=== PATIENT | female | born 1985 | race Caucasian/White ===

== ENCOUNTER → 2022-05-27 11:32 | Outpatient (BNVA) | payer OTHER, SELFPAY | PROVIDERS: PCP Internal Medicine Hematology; Visit Provider Surgery Vascular Surgery | DX: T82.848A Pain due to vascular prosthetic devices, implants and grafts, initial encounter (principal) | CPT/HCPCS: 99212 ==

== ENCOUNTER → 2022-07-17 11:08 | Outpatient (BNVA) | payer OTHER, SELFPAY | PROVIDERS: PCP Internal Medicine Hematology; Visit Provider Surgery Vascular Surgery | DX: Z78.9 Other specified health status (principal) | CPT/HCPCS: 99212 ==

== ENCOUNTER 2024-05-14 14:38 | Emergency (ER) | payer MEDICAID, SELFPAY ==
--- NOTE | 2024-05-14 14:47 | ED.ALLEREA ---
HPI - Allergic Reaction General Chief complaint: Allergic Reaction Stated complaint: BEE STING W/ALLERGY,BENEDRYL GIVEN PER EMS Time Seen by Provider: 05/14/24 14:46 Source: patient and EMS Mode of arrival: EMS Limitations: no limitations History of Present Illness ED Provider: Brandy Turner PA-C HPI narrative: 38 yo female with history of severe persistent asthma, history of stage III colon cancer status post chemotherapy, who presents to the ER via EMS for evaluation of a bee sting with allergic reaction. She has a history of an allergic reaction in the past that resulted in sensation of throat closing. Patient reports this happened 2 months ago and she took Benadryl with resolution of her symptoms. She does not have an EpiPen. Patient was stung by bees the back of the left leg while she was at 1st stool today. She reported feeling swelling in the back of her throat on the right side, cough, and swelling of her eyes. EMS was called and she was given 12.5 mg of liquid Benadryl. Patient denies any swelling of her tongue or lips. She has history of severe asthma and was just hospitalized at [facility]. She reports history of vocal cord dysfunction and changes in her voice frequently. MD complaint: allergic reaction and facial swelling Onset (ago): minute(s) Exposure: insect bite Symptoms: hoarseness Severity: moderate Treatment prior to arrival: benadryl Previous Allergic Reaction History: prior ED visit(s) Related Data Home Medications ?Medication ?Instructions ?Recorded ?Confirmed docusate sodium 100 mg capsule 100 mg PO BID 05/27/22 duloxetine 30 mg capsule,delayed 60 mg PO DAILY 05/27/22 release epinephrine 0.3 mg/0.3 mL 0.3 ml IM anaphylaxis 05/27/22 injection, auto-injector famotidine 20 mg tablet 20 mg PO BEDTIME 05/27/22 fluticasone furoate 200 1 ea inhalation DAILY 05/27/22 mcg-vilanterol 25 mcg/dose inhalation powder (Breo Ellipta) medroxyprogesterone 5 mg tablet 10 mg PO DAILY 05/27/22 methocarbamol 750 mg tablet 750 mg PO Q6H PRN muscle spasm 05/27/22 montelukast 10 mg tablet 10 mg PO BEDTIME 05/27/22 omeprazole 20 mg capsule,delayed 0 mg PO 05/27/22 release vits no.130-ferrous fum 1 tab PO DAILY 05/27/22 27 mg iron-folic acid 800 mcg tablet ( Vitamin) sennosides 8.6 mg tablet (senna) 17.2 mg PO BEDTIME 05/27/22 sucralfate 100 mg/mL oral 10 ml PO QID 05/27/22 suspension sumatriptan succinate 25 mg tablet 25 mg PO DAILY PRN migraine 05/27/22 topiramate 50 mg tablet 50 mg PO BEDTIME migraine 05/27/22 Allergies Allergy/AdvReac Type Severity Reaction Status Date / Time bee pollen [BEE STINGS] Allergy Unknown ANAPHYLAXIS Verified 05/14/24 15:08 naproxen Allergy Unknown vomiting Verified 05/14/24 15:08 penicillin G Allergy Unknown Unknown Verified 05/14/24 15:08 tramadol [From ULTRAM] Allergy Unknown VOMITING Verified 05/14/24 15:08 hydromorphone [From DILAUDID] AdvReac Unknown VOMITING Verified 05/14/24 15:08 ibuprofen AdvReac Unknown Vomiting Verified 05/14/24 15:08 lactose [LACTOSE] AdvReac Unknown IRRITATES Verified 05/14/24 15:08 THE STOMACH meperidine [From DEMEROL] AdvReac Unknown NAUSEA Verified 05/14/24 15:08 VOMITING Penicillins [PENICILLINS] AdvReac Unknown VOMITING Verified 05/14/24 15:08 Review of Systems Review of Systems: Yes all other systems are reviewed and are negative FOR[facility]LY [facility] Past Medical History Medical History Asthma Colon cancer Social History Social History Advance Directives: No Advance Directives Information Provided: No Do you have a plan to hurt others: No Plan Physical Exam ED Vital Signs: Vital Signs - 24 hr 05/14/24 15:07 05/14/24 16:52 05/14/24 16:53 Temperature Pulse Rate 96 92 Respiratory Rate 20 16 16 Blood Pressure 111/73 117/67 117/73 Pulse Oximetry 100 97 98 Oxygen Delivery Method Room Air Room Air Room Air 05/14/24 17:09 Temperature 98.4 F Pulse Rate 84 Respiratory Rate 16 Blood Pressure 117/73 Pulse Oximetry 98 Oxygen Delivery Method Room Air BMI result Body Mass Index 24.9 Appearance: Alert. Oriented X3. No acute distress. Head: normocephalic, atraumatic. Eyes: very mild swelling of the bilateral periorbital area without any associated hives or erythema. Pupils equal, round and reactive to light. ENT: Pharynx normal. No tonsillar swelling or exudate. lips are normal to inspection, tongue is normal to inspection. Voice is slightly hoarse Neck: Normal inspection. Neck supple. CVS: Normal heart rate and rhythm. Pulses normal. Port and left chest wall Respiratory: No respiratory distress. Breath sounds normal. barking cough. Abdomen: Soft and nontender. +BS x4 Skin: Skin warm and dry. Normal skin color. Normal skin turgor. No rashes. urticaria Extremities: No lower extremity edema. No joint swelling. there is some mild erythema in the posterior left calf where she got stung by the bee Neuro/psych: Oriented X 3. No motor deficit. No sensory deficit. CN II-XII intact. Course Reevaluation(s) Reevaluation #1: Patient re-evaluated after intravenous medications were administered she is feeling slightly better. Voice sounds improved. Will continue to monitor. Reevaluation #2: Patient re-evaluated and she is feeling much better. No longer having any sensation of throat swelling. Tolerating p.o.. Comfortable discharge home. Medications Administered Discontinued Medications Generic Name Dose Route Start Last Admin Trade Name Freq PRN Reason Stop Dose Admin Diphenhydramine HCl 25 mg 05/14/24 14:46 05/14/24 15:11 Diphenhydramine Hcl 50 Mg/Ml Vial IVPUSH 05/14/24 14:47 25 mg ONCE ONE Administration Famotidine 20 mg 05/14/24 14:46 05/14/24 15:11 Famotidine/Pf 20 Mg/2 Ml Vial IVPUSH 05/14/24 14:47 20 mg ONCE ONE Administration Methylprednisolone Sodium Succinate 125 mg 05/14/24 14:46 05/14/24 15:11 Methylprednisolone Sod Succ 125 Mg/2 Ml Vial IVPUSH 05/14/24 14:47 125 mg ONCE ONE Administration Medical Decision Making Medical Decision Making MDM Narrative: 38 yo female with hx asthma, VCD, history of allergic reaction to bees in the past who presents to the ER for evaluation of allergic reaction. Given 12 mg of oral Benadryl in route. On arrival to the ER patient's port was accessed and she was given intravenous Solu-Medrol, Pepcid, Benadryl. She was monitored closely for evolution of her symptoms. She remained on telemetry. Patient's symptoms were re-evaluated multiple times throughout her stay. She continued to improve. After hours of observation patient was able to be discharged home. Differential Diagnosis Differential Diagnoses: The differential diagnosis associated with the presentation includes Anaphylaxis, allergic reaction, angioedema, urticaria, Admission/Observation Consideration of admission/observation: Escalation of care including admission/observation considered Independent Historian Clinical information obtained from an independent historian. History obtained from or confirmed by: EMS External Record Review External record reviewed: Outpatient record Prescription Management I considered prescription management with: Other (Epinephrine) Chronic Conditions Patient?s care impacted by: Other (Asthma, VCD) Critical Care Time Critical Care Time Critical Care Time: Yes Total Critical Care Time: 33 Attestation: I have personally provided critical care time exclusive of time spent on separately billable procedures. Time includes review of chart, multiple bedside reassessments of cardiopulmonary status and for possible evolution of anaphylaxis and monitoring for potential decompensation. Intervention performed as documented. Discharge Plan Discharge Clinical Impression: Allergic reaction Patient Disposition: Home, Self-Care Instructions: General Allergic Reaction (ED) Additional Instructions: Recommend keeping Benadryl on her person in the event that you get stung by a bee again, recommend taking 50 mg of Benadryl. Follow-up with your doctor. If you develop new or worsening symptoms call 911 or come back to the ER for further evaluation. Prescriptions: No Action sucralfate 100 mg/mL suspension 10 ml PO QID medroxyprogesterone 5 mg tablet 10 mg PO DAILY methocarbamol 750 mg tablet 750 mg PO Q6H PRN (Reason: muscle spasm) Vitamin 27 mg iron- 800 mcg tablet 1 tab PO DAILY topiramate 50 mg tablet 50 mg PO BEDTIME epinephrine 0.3 mg/0.3 mL auto-injector 0.3 ml IM fluticasone furoate-vilanterol [Breo Ellipta] 200-25 mcg/dose blister with device 1 ea inhalation DAILY sumatriptan succinate 25 mg tablet 25 mg PO DAILY PRN (Reason: migraine) omeprazole 20 mg capsule,delayed release(DR/EC) 0 mg PO docusate sodium 100 mg capsule 100 mg PO BID sennosides [senna] 8.6 mg tablet 17.2 mg PO BEDTIME montelukast 10 mg tablet 10 mg PO BEDTIME famotidine 20 mg tablet 20 mg PO BEDTIME duloxetine 30 mg capsule,delayed release(DR/EC) 60 mg PO DAILY Interventions: ED Discharge Assessment Last Done: 05/14/24 17:09 Discharge Date/Time: 05/14/24 17:10 Print Language: Vietnamese
[2024-05-14 15:07] VITALS: BP 111/73; PULSE 96; RESP 20; O2SAT 100; BMI 24.9
[2024-05-14] MEDS: Famotidine/PF 20 MG/2 ML VIAL IVPUSH (15:11)
[2024-05-14] MEDS: diphenhydrAMINE HCL 50 MG/ML VIAL 25 MG IVPUSH (15:11)
[2024-05-14] MEDS: methylPREDNISolone Sod Succ 125 MG/2 ML VIAL IVPUSH (15:11)
[2024-05-14 16:52] VITALS: BP 117/67; PULSE 92; RESP 16; O2SAT 97
[2024-05-14 16:53] VITALS: BP 117/73; RESP 16; O2SAT 98
[2024-05-14 17:09] VITALS: BP 117/73; PULSE 84; RESP 16; TEMP 36.9; O2SAT 98
--- OUTSIDE RECORDS SUMMARY | 2024-05-15 00:39 | XMS_ITS | Continuity of Care Document ---
Author Organization [facility] Address [address] [place] [address] [address] [place] [address]- Care Team Providers Care Garment Fitter Name Role Phone Adela CYR, Cyndi Aguila Primary Care Physicia n Unavailable Encounter [facility] Date(s): 05/18/23 - 06/17/23 [facility] [address] [place] [address] [address] [place] [address]- Attending Physician: tSeven Chester Admitting Physician: AdmtrSteven Referring Physician: Admtr Ar8 Allergies, Adverse Reactions, Alerts Substance Reaction Severity Status ibuprofen Naproxen Active penicillin 1 vomiting Active Dilaudid Active Demerol GI UPSET Active Bee Stings Active Contrast Dye Active Pollen Active Other Environmental Allergy 2 Active 1tolerated CTX and azithromycin 2bleach Immunizations Given and Recorded Vaccine Date Status Refusal Reason tetanus/diphtheria/pertussis, acel(Tdap) 05/21/16 Given pneumococcal 23-valent vaccine 08/07/14 Given tetanus-diphtheria toxoids (Td) 07/20/08 Given Human Papillomavirus Vaccine 1 09/03/07 Given 1Admin Note: Gardasil #1 Medications albuterol 0.083% inhalation solution 3 mL = 2.5 mg, Inhalation, 4 times a day, PRN Wheezing/Shortness of Breath, can combine ipratropiumand albuterol and take together via neb, # 120 each, 6 Refills, Maintenance, 04/15/23 10:00:00 EDT,Solution, [id number], Partial fill upon pat... Start Date: 04/15/23 Status: Ordered albuterol-ipratropium 3 mg-0.5 mg/3 ml inhalation solution 3 mL, Neb, 4 times a day, PRN Wheezing/Shortness of Breath, # 180 mL, 6 Refills, Maintenance, 06/16/19 14:39:14 EDT, Inhalation Solution, 3 mL Neb 4 times a day,x30 days,PRN:Wheezing/Shortness of Breath Start Date: 06/16/19 Stop Date: 01/12/20 Status: Ordered benadryl benadryl, 0 Refills, Maintenance, 03/03/22 14:18:00 EDT Start Date: 03/03/22 Status: Ordered Breo Ellipta 200 mcg-25 mcg/inh inhalation powder 1 puffs, Inhalation, Daily, # 60 each, 5 Refills, Maintenance, 11/06/22 13:50:00 EST, [id number], 30, INHALE 1 PUFF INTO THE LUNGS ONCE DAILY, 163, cm, 03/03/22 14:14:00 EDT, Height Start Date: 11/06/22 Status: Ordered EPINEPHrine 0.1 mg injectable kit Intramuscular, Once, 0 Refills, Maintenance, 10/27/18 2:57:50 EST Start Date: 10/27/18 Status: Ordered ipratropium 500 mcg/2.5 mL inhalation solution 500 mcg, 2.5, mL, Inhalation, 4 times a day, PRN, can combine ipratropium and albuterol and take together via neb, # 120 each, Refills 6, Tot. Refills 6, Maintenance, 04/15/23 10:00:00 EDT, Inhalation Solution, Route to Pharmacy Electronically, [id number]... Start Date: 04/15/23 Status: Ordered montelukast 10 mg oral tablet 10 mg, 1, tablet, By Mouth, Daily in PM, # 30 tablet, Refills 0, Maintenance, 04/14/18 9:13:17 EDT Start Date: 04/14/18 Status: Ordered Nebulizer/Compressor See Instructions, # 1 each, Refills 11, Tot. Refills 11, Maintenance, Nebulizer Supplies A7003 Neb Disp Set A7014 Neb non-Disp Filter A7005 Neb Non-Disp set A7015 Aerosol Mask A7013 Neb Disp Filter length of need lifetime 99 months for home use,... Start Date: 04/15/23 Status: Ordered Multivitamins By Mouth, Daily, 0 Refills, Maintenance, 05/26/23 9:01:00 EDT, Partial fill upon patient request ifthe prescription is for a schedule II opioid drug. Start Date: 05/26/23 Status: Ordered ProAir HFA 90 mcg/inh inhalation aerosol with adapter 2, puffs, Inhalation, Every 4 hours, PRN, # 1 each, Refills 3, Tot. Refills 3, Maintenance, 12/31/19 10:40:22 EDT, Aerosol, Route to Pharmacy Electronically, NCPDP_ID-[id number], [facility] Start Date: 12/31/19 Stop Date: 04/29/20 Status: Ordered Spiriva HandiHaler 18 mcg inhalation capsule 1 capsule = 18 mcg, Inhalation, Daily, j45.40, # 30 capsule, 6 Refills, Maintenance, 01/29/21 15:26:00 EDT, [id number], 163, cm, 12/18/20 9:27:00 EDT, Height, 81.8, kg, 03/31/19 10:26:00 EDT, Dry Weight Start Date: 01/29/21 Status: Ordered Sumatriptan Once, 0 Refills, Maintenance, 03/03/22 14:16:00 EDT, Partial fill upon patient request if the prescription is for a schedule II opioid drug. Start Date: 03/03/22 Status: Ordered Symbicort 160mcg/4.5mcg Inhaler 2, puffs, Inhalation, 2 times a day, use with spacer chamber in the morning and the evening rinse mouth and throat after use, # 3 each, Refills 3, Tot. Refills 3, Maintenance, 01/07/23 11:07:00 EDT, Aerosol, Route to Pharmacy Electronically, [id number]... Start Date: 01/07/23 Stop Date: 01/02/24 Status: Ordered tezepelumab-ekko 210 mg/1.91 mL subcutaneous solution See Instructions, 210 mg Subcutaneous Infusion every 4 weeks, j45.40, # 1 each, 11 Refills, Maintenance, 05/20/23 14:56:00 EDT, Partial fill upon patient request if the prescription is for a scheduleII opioid drug. Start Date: 05/20/23 Status: Ordered topamax topamax, 0 Refills, Maintenance, 03/03/22 14:16:00 EDT Start Date: 6/13/22 Status: Ordered traZODone 50 mg oral tablet 50 mg, 1, tablet, By Mouth, Daily at bedtime, # 30 tablet, Refills 0, Tot. Refills 0, Maintenance, 01/20/19 11:33:04 EDT, Route to Pharmacy Electronically, NCPDP_ID-[id number], [facility] Start Date: 01/20/19 Status: Ordered Tylenol Extra Strength By Mouth, Every 6 hours, 0 Refills, Maintenance, 05/26/23 9:02:00 EDT, Partial fill upon patient request if the prescription is for a schedule II opioid drug. Start Date: 05/26/23 Status: Ordered Problem List Condition Confirmation Course Effective Dates Status Health St atus Informant Ankle sprain Confirmed 04/10/09 Active Asthma Confirmed 03/26/11 Active Decreased appetite Confirmed Active Depression Confirmed 03/26/11 Active Epigastric pain Confirmed Active Generalized Anxiety Disorder Confirmed 02/26/11 Active H/O nausea and vomiting Confirmed Active Hypothyroid Confirmed Active Menstrual disorder Confirmed Active KEVIN on CPAP Confirmed Active PCOS (polycystic ovarian syndrome) 1 Confirmed Active Prediabetes Confirmed Active 1Based on oligomenorrhea and US evidence of polycystic ovaries Social History Social History Type Response Smoking Status Never smoker; Tobacc o user in household: Yes entered on: 03/27/16 Sex Patient Care team information Care Team Personnel Name: Luzmaria Calderón NP Position: [facility] PCO Associate Professional Member Role: Primary Care Nurse Address: Address: [address] [place] [id number]- Name: Zurdo Gould RN Position: [facility] RN Member Role: Primary Care Nurse Name: Evelyn Dey RN Position: [facility] RN Member Role: Primary Care Nurse Name: Chelsy Kc RN Position: [facility] AMB Nurse Member Role: Primary Care Nurse Name: Radha Galvez RN Position: [facility] Rad RN Member Role: Primary Care Nurse Name: Brea Barajas NP Position: [facility] Associate Professional Member Role: Primary Care Nurse Address: Address: [address] [place] [address]- Name: Elissa Lopez RN Position: [facility] RN Member Role: Primary Care Nurse Name: Ann Oliver NP Position: Reference Physician Member Role: Primary Care Nurse Address: Address: [address] [place] [address]- [place] Name: Gloria Peralta RN Position: [facility] RN Member Role: Primary Care Nurse Name: Shaniqua Tripp RN Position: [facility] AMB Nurse Member Role: Primary Care Nurse Name: Becky Amaro RN Position: [facility] RN Member Role: Primary Care Nurse Name: Franci Walker RN Position: [facility] RN Member Role: Primary Care Nurse Name: Ariana Wheeler RN Position: [facility] RN Member Role: Primary Care Nurse Name: Regina Richardson Position: [facility] RN Member Role: Primary Care Nurse Name: Connor NEON INSTALLERSmitha Position: [facility] Associate Professional Member Role: Primary Care Nurse Address: Address: [address] [place] [address] [place] [address]- Name: Regina Bo RN Position: [facility] AMB Nurse Member Role: Primary Care Nurse Name: Opal Ramos RN Position: [facility] RN Member Role: Primary Care Nurse Name: Cyndi Chapman NP Position: [facility] Outreach Member Role: PCP Address: Address: [address] [place] [id number]- Name: Johnnie RNArianna Position: [facility] ED RN W/OE and Tasks Member Role: Primary Care Nurse Name: Sarkis Dawn RN Position: [facility] RN Member Role: Primary Care Nurse Name: Terrie Valles RN Position: [facility] RN Member Role: Primary Care Nurse Name: Antonio Sheriff III, RN Position: [facility] RN Member Role: Primary Care Nurse Name: Blanca Quiroga RN Position: [facility] RN Member Role: Primary Care Nurse Name: Luzmaria Youngblood RN Position: [facility] RN Member Role: Primary Care Nurse Name: Sally Loya RN Position: [facility] RN Member Role: Primary Care Nurse Name: Quirino Mejia RN Position: [facility] RN Member Role: Primary Care Nurse Name: Massiel Ham RN Position: [facility] AMB Nurse Member Role: Primary Care Nurse Name: Daria Dalton RN Position: [facility] RN Member Role: Primary Care Nurse Name: Luzmaria Gan RN Position: [facility] Hospital Roller Checker Member Role: Primary Care Nurse Name: Quirino Duran RN Position: [facility] RN Member Role: Primary Care Nurse Name: Evelyn Monroe RN Position: [facility] OB RN Member Role: Primary Care Nurse Name: Laura Chavira RN Position: [facility] Onco RN Member Role: Primary Care Nurse Name: Yessica Morillo RN Position: [facility] RN Member Role: Primary Care Nurse Care Team Related Persons Name: JERAMIE BARGER Address: [address] [place] [address] Name: RIKY PEREIRA Address: home [address] [address] Name: EILEEN GOODMAN Address: home [address] [place] [address]
--- OUTSIDE RECORDS SUMMARY | 2024-05-15 00:39 | XMS_ITS | Continuity of Care Document ---
Author Organization [facility] Address [address] [place] [address] [address] [place] [address]- Care Team Providers Care Eligibility Supervisor Name Role Phone Adela CYR, Cyndi Annshank Primary Care Physicia n Unavailable Encounter [facility] [place](s): 05/18/23 - 06/17/23 [facility] [address] [place] [id number] Attending Physician: Ambrose Reyes MD Admitting Physician: Ambrose Reyes MD Allergies, Adverse Reactions, Alerts Substance Reaction Severity Status ibuprofen Naproxen Active Dilaudid Active penicillin 1 vomiting Active Demerol GI UPSET Active Bee Stings [...] 6 Refills, Maintenance, 04/15/23 10:00:00 EDT,Solution, [id number] Partial fill upon pat... Start Date: 04/15/23 [...] each, 5 Refills, Maintenance, 11/06/22 13:50:00 EST, [id number], 30, INHALE 1 PUFF INTO THE LUNGS [...] 10:40:22 EDT, Aerosol, Route to Pharmacy Electronically, NCPDP_[id number], [facility] Start Date: 12/31/19 Stop Date: 04/29/20 Status: Ordered Spiriva HandiHaler 18 mcg inhalation capsule 1 capsule = 18 mcg, Inhalation, Daily, j45.40, # 30 capsule, 6 Refills, Maintenance, 01/29/21 15:26:00 EDT, [id number], 163, cm, 12/18/20 9:27:00 EDT, Height, 81.8, [...] 11:07:00 EDT, Aerosol, Route to Pharmacy Electronically, [id number]... Start Date: 01/07/23 Stop Date: 01/02/24 Status: Ordered tezepelumab-ekko 210 mg/1.91 mL subcutaneous solution See Instructions, 210 mg Subcutaneous Infusion every 4 weeks, j45.40, # 1 each, 11 Refills, Maintenance, 05/20/23 14:56:00 EDT, Partial fill upon patient request if the prescription is for a scheduleII opioid drug. Start Date: 05/20/23 Status: Ordered topamax topamax, 0 Refills, Maintenance, 03/03/22 14:16:00 EDT Start Date: 03/03/22 Status: Ordered traZODone 50 mg oral tablet 50 mg, 1, tablet, By Mouth, Daily at bedtime, # 30 tablet, Refills 0, Tot. Refills 0, Maintenance, 01/20/19 11:33:04 EDT, Route to Pharmacy Electronically, NCPDP_ID-[id number], [facility] Start Date: 01/20/19 Status: Ordered Tylenol Extra [...] Team Personnel Name: Luzmaria Calderón NP Position: [facility] PCO Associate Professional Member Role: Primary Care Nurse Address: Address: [address] [place] [address]- Name: Zurdo Gould RN Position: [facility] RN Member Role: Primary Care Nurse Name: Evelyn Dey RN Position: [facility] RN Member Role: Primary Care Nurse Name: Chelsy Kc RN Position: [facility] AMB Nurse Member Role: Primary Care Nurse Name: Radha Galvez RN Position: [facility] Rad RN Member Role: Primary Care Nurse Name: Brea Barajas NP Position: [facility] Associate Professional Member Role: Primary Care Nurse Address: Address: [address] [place] [address]- [place] Name: Elissa Lopez RN Position: [facility] RN Member Role: Primary Care Nurse Name: Ann Oliver NP Position: Reference Physician Member Role: Primary Care Nurse Address: Address: [address] [place] [address] [address] [place] [address]- Name: Gloria Peralta RN Position: [facility] RN Member Role: Primary Care Nurse Name: Shaniqua Tripp RN Position: [facility] AMB Nurse Member Role: Primary Care Nurse Name: Becky Amaro RN Position: [facility] RN Member Role: Primary Care Nurse Name: Franci Walker RN Position: [facility] RN Member Role: Primary Care Nurse Name: Ariana Wheeler RN Position: [facility] RN Member Role: Primary Care Nurse Name: Regina Richardson Position: [facility] RN Member Role: Primary Care Nurse Name: Smitha Ryan NP Position: [facility] Associate Professional Member Role: Primary Care Nurse Address: Address: [address] [place] [address] [place] [address]- Name: Regina Bo RN Position: [facility] AMB Nurse Member Role: Primary Care Nurse Name: Opal Ramos RN Position: [facility] RN Member Role: Primary Care Nurse Name: Cyndi Chapman NP Position: [facility] Outreach Member Role: PCP Address: Address: [address] [place] [address]- Name: Arianna Blair RN Position: [facility] ED RN W/OE and Tasks Member Role: Primary Care Nurse Name: Sarkis Dawn RN Position: [facility] RN Member Role: Primary Care Nurse Name: Terrie Valles RN Position: [facility] RN Member Role: Primary Care Nurse Name: Antonio Sheriff III, RN Position: [facility] RN Member Role: Primary Care Nurse Name: Blanca Quiroga RN Position: [facility] RN Member Role: Primary Care Nurse Name: Luzmaria Youngblood RN Position: [facility] RN Member Role: Primary Care Nurse Name: Sally Loya RN Position: [facility] RN Member Role: Primary Care Nurse Name: Quirino Mejia RN Position: [facility] RN Member Role: Primary Care Nurse Name: Massiel Ham RN Position: [facility] AMB Nurse Member Role: Primary Care Nurse Name: Daria Dalton RN Position: [facility] RN Member Role: Primary Care Nurse Name: Luzmaria Gan RN Position: [facility] Hospital Real Estate Transaction Manager Member Role: Primary Care Nurse Name: Quirino Duran RN Position: [facility] RN Member Role: Primary Care Nurse Name: Evelyn Monroe RN Position: [facility] OB RN Member Role: Primary Care Nurse Name: Laura Chavira RN Position: [facility] Onco RN Member Role: Primary Care Nurse Name: Yessica Morillo RN Position: [facility] RN Member Role: Primary Care Nurse Care Team Related Persons Name: MAICOL BARGERE Address: [address] [place] [address] Name: RIKY PEREIRA Address: [address] [address] Name: EILEEN GOODMAN Address: home [address] [place] [address]
--- OUTSIDE RECORDS SUMMARY | 2024-05-15 00:39 | XMS_ITS | Continuity of Care Document ---
Author Organization [facility] Address [address] [place] [address]- Care Team Providers Care Sample Selector Name Role Phone Adela CYR, Cyndi Aguila Primary Care Physicia n En[place] [facility] [place] Date(s): 08/12/23 - 09/11/23 [facility] [address] [place] [id number] Attending Physician: Steven Chester Admitting Physician: AdmtrSteven Referring Physician: Admtr, Ar8 Allergies, Adverse Reactions, Alerts Substance Reaction [...] 6 Refills, Maintenance, 04/15/23 10:00:00 EDT,Solution, [id number], Partial fill upon pat... Start Date: 04/15/23 [...] Daily, # 60 each, 5 Refills, Maintenance, 07/09/23 8:16:00 EDT, [facility], 30, INHALE 1 PUFF INTO THE LUNGS ONCE DAILY, 163, cm, 05/26/23 9:04:00 EDT, Height Start Date: 07/09/23 Status: Ordered EPINEPHrine 0.1 mg injectable kit [...] 10:40:22 EDT, Aerosol, Route to Pharmacy Electronically, NCPDP_ID-[id number], [facility] Start Date: 12/31/19 Stop Date: 04/29/20 Status: Ordered Spiriva HandiHaler 18 mcg inhalation capsule 1 capsule = 18 mcg, Inhalation, Daily, j45.40, # 30 capsule, 6 Refills, Maintenance, 01/29/21 15:26:00 EDT, [facility] #[id number], 163, cm, 12/18/20 9:27:00 EDT, Height, 81.8, [...] 11:07:00 EDT, Aerosol, Route to Pharmacy Electronically, [id number]... Start Date: 01/07/23 Stop Date: 01/02/24 Status: [...] 01/20/19 11:33:04 EDT, Route to Pharmacy Electronically, NCPDP_ID-[id number], [facility] Start Date: 01/20/19 Status: Ordered Tylenol Extra [...] Team Personnel Name: Luzmaria Calderón NP Position: [facility] PCO Associate Professional Member Role: Primary Care Nurse Address: Address: [address] [place] [address]- Name: Zurdo Gould RN Position: [facility] RN Member Role: Primary Care Nurse Name: Luzmaria Skinner RN Position: [facility] RN Member Role: Primary Care Nurse Name: Evelyn Dey RN Position: [facility] RN Member Role: Primary Care Nurse Name: Chelsy Kc RN Position: [facility] ADRIANA Nurse Member Role: Primary Care Nurse Name: Radha Galvez RN Position: [facility] Pedro RN Member Role: Primary Care Nurse Name: Brea Barajas NP Position: [facility] Associate Professional Member Role: Primary Care Nurse Address: Address: [address] [place] [address]- Name: Elissa Lopez RN Position: [facility] RN Member Role: Primary Care Nurse Name: Ann Oliver NP Position: Reference Physician Member Role: Primary Care Nurse Address: Address: [address] [place] [address] [address] [place] [address]- [place] Name: Gloria Peralta RN Position: [facility] RN Member Role: Primary Care Nurse Name: Laura Pratt RN Position: [facility] Onco RN Member Role: Primary Care Nurse Name: Shaniqua Tripp RN Position: [facility] AMB Nurse Member Role: Primary Care Nurse Name: Becky Amaro RN Position: [facility] RN Member Role: Primary Care Nurse Name: Franci Walker RN Position: [facility] RN Member Role: Primary Care Nurse Name: Ariana Wheeler RN Position: [facility] RN Member Role: Primary Care Nurse Name: Regina Richardson Position: [facility] RN Member Role: Primary Care Nurse Name: Smitha Ryan NP Position: [facility] Associate Professional Member Role: Primary Care Nurse Address: Address: [address] [place] [address] [place] [address]- [place] Name: Regina Bo RN Position: [facility] AMB Nurse Member Role: Primary Care Nurse Name: Opal Ramos RN Position: [facility] ED RN W/OE and Tasks Member Role: Primary Care Nurse Name: Cyndi Chapman NP Position: Reference Physician Member Role: PCP Address: Address: [address] [place] [address]- [place] Name: Arianna Blair RN Position: [facility] ED RN W/OE and Tasks Member Role: Primary Care Nurse Name: Sarkis Dawn RN Position: [facility] RN Member Role: Primary Care Nurse Name: Terrie Valles RN Position: [facility] RN Member Role: Primary Care Nurse Name: Antonio Sheriff III, RN Position: [facility] RN Member Role: Primary Care Nurse Name: Blanca Quiroga RN Position: [facility] RN Member Role: Primary Care Nurse Name: Quirino Mejia RN Position: [facility] RN Member Role: Primary Care Nurse Name: Massiel Ham RN Position: [facility] AMB Nurse Member Role: Primary Care Nurse Name: Daria Dalton RN Position: [facility] RN Member Role: Primary Care Nurse Name: Luzmaria Gan RN Position: [facility] Hospital Chief Clinical Officer Member Role: Primary Care Nurse Name: Jim Cedeño RN Position: [facility] ED RN W/OE and Tasks Member Role: Primary Care Nurse Name: Quirino Duran RN Position: [facility] RN Member Role: Primary Care Nurse Name: Evelyn Monroe RN Position: [facility] OB RN Member Role: Primary Care Nurse Name: Yessica Morillo RN Position: [facility] RN Member Role: Primary Care Nurse Care Team Related Persons Name: JERAMIE BARGER Address: [address] [place] [address] Name: RIKY PEREIRA Address: [address] [address] Name: EILEEN GOODMAN Address: [address] [place] [address]
--- OUTSIDE RECORDS SUMMARY | 2024-05-15 00:39 | XMS_ITS | Continuity of Care Document ---
Author Organization [facility] Address [address] [place] [address]- Care Team Providers Care Lottery Office Manager Name Role Phone Adela CYR, Cyndi Aguila Primary Care Physicia n Unavailable En[place] [facility] [place](s): 05/26/23 - 06/25/23 [facility] [address] [place] [address] Attending Physician: Steven Chester Admitting Physician: Steven Chester Referring Physician: AdmtrSteven Allergies, Adverse Reactions, Alerts Substance Reaction Severity Status ibuprofen Naproxen Active Contrast Dye Active Other Environmental Allergy 1 Active penicillin 2 vomiting Active Dilaudid Active Demerol GI UPSET Active Bee Stings Active Pollen Active 1bleach 2tolerated CTX and azithromycin Immunizations Given and Recorded Vaccine Date Status [...] 6 Refills, Maintenance, 04/15/23 10:00:00 EDT,Solution, [id number], Partial fill upon pat... Start Date: 04/15/23 [...] each, 5 Refills, Maintenance, 11/06/22 13:50:00 EST, [facility], 30, INHALE 1 PUFF INTO THE LUNGS [...] 10:40:22 EDT, Aerosol, Route to Pharmacy Electronically, NCPDP_[id number], [facility] Start Date: 12/31/19 Stop Date: 04/29/20 Status: Ordered Spiriva HandiHaler 18 mcg inhalation capsule 1 capsule = 18 mcg, Inhalation, Daily, j45.40, # 30 capsule, 6 Refills, Maintenance, 01/29/21 15:26:00 EDT, [facility] #[id number], 163, cm, 12/18/20 9:27:00 EDT, Height, 81.8, [...] 11:07:00 EDT, Aerosol, Route to Pharmacy Electronically, [id number]... Start Date: 01/07/23 Stop Date: 01/02/24 Status: [...] 01/20/19 11:33:04 EDT, Route to Pharmacy Electronically, NCPDP_[id number], [facility] Start Date: 01/20/19 Status: Ordered Tylenol Extra [...] Team Personnel Name: Luzmaria Calderón NP Position: [facility]O Associate Professional Member Role: Primary Care Nurse Address: Address: [address] [place] [address]- [place] Name: Zurdo Gould RN Position: [facility] RN Member Role: Primary Care Nurse Name: Evelyn Dey RN Position: S RN Member Role: Primary Care Nurse Name: Chelsy Kc RN Position: [facility] AMB Nurse Member Role: Primary Care Nurse Name: Radha Galvez RN Position: [facility] Rad RN Member Role: Primary Care Nurse Name: Brea Barajas NP Position: [facility] Associate Professional Member Role: Primary Care Nurse Address: Address: [address] [place] [address]- [place] Name: Elissa Lopez RN Position: [facility] RN Member Role: Primary Care Nurse Name: Ann Oliver NP Position: Reference Physician Member Role: Primary Care Nurse Address: Address: [address] [place] [address] [address] [place] [address]- [place] Name: Gloria Peralta RN Position: [facility] RN Member Role: Primary Care Nurse Name: Shaniqua Tripp RN Position: [facility] AMB Nurse Member Role: Primary Care Nurse Name: Becky Amaro RN Position: [facility] RN Member Role: Primary Care Nurse Name: Franci Walker RN Position: [facility] RN Member Role: Primary Care Nurse Name: Ariana Wheeler RN Position: [facility] RN Member Role: Primary Care Nurse Name: Regina Richardson Position: [facility] RN Member Role: Primary Care Nurse Name: Smitha Ryan NP Position: [facility] Associate Professional Member Role: Primary Care Nurse Address: Address: [address] [place] [address] [place] [address]- Name: Regina Bo RN Position: [facility] AMB Nurse Member Role: Primary Care Nurse Name: Opal Ramos RN Position: [facility] RN Member Role: Primary Care Nurse Name: Cyndi Chapman NP Position: [facility] Outreach Member Role: PCP Address: Address: [address] [place] [address]- Name: Arianna Blair RN Position: [facility] ED RN W/OE and Tasks Member Role: Primary Care Nurse Name: Sarkis Dawn RN Position: [facility] RN Member Role: Primary Care Nurse Name: Terrie Valles RN Position: [facility] RN Member Role: Primary Care Nurse Name: Antonio Sheriff III, RN Position: [facility] RN Member Role: Primary Care Nurse Name: Blanca Quiroga RN Position: [facility] RN Member Role: Primary Care Nurse Name: Luzmaria Youngblood RN Position: [facility] RN Member Role: Primary Care Nurse Name: Sally Loya RN Position: [facility] RN Member Role: Primary Care Nurse Name: Quirino Mejia RN Position: [facility] RN Member Role: Primary Care Nurse Name: Massiel Ham RN Position: [facility] RN Member Role: Primary Care Nurse Name: Daria Dalton RN Position: [facility] RN Member Role: Primary Care Nurse Name: Luzmaria Gan RN Position: [facility] Hospital Color Stripper Member Role: Primary Care Nurse Name: Quirino Duran RN Position: [facility] RN Member Role: Primary Care Nurse Name: Evelyn Monroe RN Position: [facility] OB RN Member Role: Primary Care Nurse Name: Laura Chavira RN Position: [facility] Onco RN Member Role: Primary Care Nurse Name: Yessica Morillo RN Position: [facility] RN Member Role: Primary Care Nurse Care Team Related Persons Name: JERAMIE BARGER Address: home [address] [place] [address] Name: RIKY PEREIRA Address: home [address] [address] Name: EILEEN GOODMAN Address: home [address] [place] [address]
--- OUTSIDE RECORDS SUMMARY | 2024-05-15 00:39 | XMS_ITS | Continuity of Care Document ---
Author Organization [facility] Address [address] [place] [address]- Care Team Providers Care Emergency Management Specialist Name Role Phone Adela CYR, Cyndi Aguila Primary Care Physicia n Unavailable Encounter [facility] [place] Date(s): 07/09/23 - 08/14/[address] [address]- Attending Physician: Ambrose Reyes MD Admitting Physician: Ambrose Reyes MD Referring Physician: Ambrose Reyes MD Allergies, Adverse Reactions, [...] 6 Refills, Maintenance, 04/15/23 10:00:00 EDT,Solution, [id number], Partial fill upon pat... Start Date: 04/15/23 [...] each, 5 Refills, Maintenance, 07/09/23 8:16:00 EDT, [facility]158, 30, INHALE 1 PUFF INTO THE LUNGS [...] 10:40:22 EDT, Aerosol, Route to Pharmacy Electronically, NCPDP_[id number], [facility] Start Date: 12/31/19 Stop Date: 04/29/20 Status: Ordered Spiriva HandiHaler 18 mcg inhalation capsule 1 capsule = 18 mcg, Inhalation, Daily, j45.40, # 30 capsule, 6 Refills, Maintenance, 01/29/21 15:26:00 EDT, [facility] #95930, 163, cm, 12/18/20 9:27:00 EDT, Height, 81.8, [...] 11:07:00 EDT, Aerosol, Route to Pharmacy Electronically, [id number]... Start Date: 01/07/23 Stop Date: 01/02/24 Status: [...] 01/20/19 11:33:04 EDT, Route to Pharmacy Electronically, NCPDP_[id number], [facility] Start Date: 01/20/19 Status: Ordered Tylenol Extra [...] Team Personnel Name: Luzmaria Calderón NP Position: [facility] Associate Professional Member Role: Primary Care Nurse Address: Address: [address] [place] [address]- Name: Zurdo Gould RN Position: [facility] RN Member Role: Primary Care Nurse Name: Luzmaria Skinner RN Position: [facility] RN Member Role: Primary Care Nurse Name: Evelyn Dey RN Position: [facility] RN Member Role: Primary Care Nurse Name: Chelsy Kc RN Position: [facility] ADRIANA Nurse Member Role: Primary Care Nurse Name: Radha Galvez RN Position: [facility] Pedro RN Member Role: Primary Care Nurse Name: Brea Barajas NP Position: [facility] Associate Professional Member Role: Primary Care Nurse Address: Address: [address] [place] [address]- Name: Elissa Lopez RN Position: [facility] RN Member Role: Primary Care Nurse Name: Ann Oliver NP Position: Reference Physician Member Role: Primary Care Nurse Address: Address: [address] [place] [address] [address] [place] [address]- [place] Name: Gloria Peralta RN Position: [facility] RN Member Role: Primary Care Nurse Name: Laura Pratt RN Position: [facility] Onco RN Member Role: Primary Care Nurse Name: Shaniqua Tripp RN Position: [facility] AMB Nurse Member Role: Primary Care Nurse Name: Becky Amaro RN Position: [facility] RN Member Role: Primary Care Nurse Name: Franci Walker RN Position: [facility] RN Member Role: Primary Care Nurse Name: Ariana Wheeler RN Position: [facility] RN Member Role: Primary Care Nurse Name: Regina Richardson Position: [facility] RN Member Role: Primary Care Nurse Name: Smitha Ryan NP Position: [facility] Associate Professional Member Role: Primary Care Nurse Address: Address: [address] [place] [address] [place] [address]- Name: Regina Bo RN Position: [facility] AMB Nurse Member Role: Primary Care Nurse Name: Opal Ramos RN Position: [facility] RN Member Role: Primary Care Nurse Name: Arianna Blair RN Position: [facility] ED RN W/OE and Tasks Member Role: Primary Care Nurse Name: Sarkis Dawn RN Position: [facility] RN Member Role: Primary Care Nurse Name: Terrie Valles RN Position: [facility] RN Member Role: Primary Care Nurse Name: Antonio Sheriff III, RN Position: [facility] RN Member Role: Primary Care Nurse Name: Blanca Quiroga RN Position: [facility] RN Member Role: Primary Care Nurse Name: Sally Loya RN Position: [facility] RN Member Role: Primary Care Nurse Name: Quirino Mejia RN Position: [facility] RN Member Role: Primary Care Nurse Name: Massiel Ham RN Position: [facility] AMB Nurse Member Role: Primary Care Nurse Name: Daria Dalton RN Position: [facility] RN Member Role: Primary Care Nurse Name: Luzmaria Gan RN Position: [facility] Hospital Master Tax Advisor Member Role: Primary Care Nurse Name: Quirino Duran RN Position: [facility] RN Member Role: Primary Care Nurse Name: Evelyn Monroe RN Position: [facility] OB RN Member Role: Primary Care Nurse Name: Yessica Morillo RN Position: S RN Member Role: Primary Care Nurse Care Team Related Persons Name: DENITA JERAMIE Address: [address] [place] [address] Name: RIKY PEREIRA Address: home [address] [address] Name: EILEEN GOODMAN Address: home [address] [place] [address]
--- OUTSIDE RECORDS SUMMARY | 2024-05-15 00:39 | XMS_ITS | Continuity of Care Document ---
Author Organization [facility] ter Address [address] [place] [address]- Care Team Providers Care Shroudman Name Role Phone Adela CYR, Cyndi Aguila Primary Care Physicia n Unavailable Encounter [facility] Date(s): 05/27/23 - 07/02/[address] [id number] Attending Physician: Ambrose Reyes MD Admitting Physician: Ambrose Reyes MD Referring Physician: Ambrose Reyes MD Allergies, Adverse Reactions, Alerts Substance Reaction Severity Status ibuprofen Naproxen Active Contrast Dye Active penicillin 1 vomiting Active Dilaudid Active Demerol GI UPSET Active Bee Stings Active Pollen Active Other Environmental Allergy 2 [...] 6 Refills, Maintenance, 04/15/23 10:00:00 EDT,Solution, [id number] Partial fill upon pat... Start Date: 04/15/23 [...] each, 5 Refills, Maintenance, 11/06/22 13:50:00 EST, [facility] [id number], 30, INHALE 1 PUFF INTO THE LUNGS [...] 10:40:22 EDT, Aerosol, Route to Pharmacy Electronically, NCPDP_ID-[id number], [facility] Start Date: 12/31/19 Stop Date: 04/29/20 Status: Ordered Spiriva HandiHaler 18 mcg inhalation capsule 1 capsule = 18 mcg, Inhalation, Daily, j45.40, # 30 capsule, 6 Refills, Maintenance, 01/29/21 15:26:00 EDT, [facility] #[id number], 163, cm, 12/18/20 9:27:00 EDT, Height, 81.8, [...] 11:07:00 EDT, Aerosol, Route to Pharmacy Electronically, [id number]... Start Date: 01/07/23 Stop Date: 01/02/24 Status: [...] 01/20/19 11:33:04 EDT, Route to Pharmacy Electronically, NCPDP_[id number], [facility] Start Date: 01/20/19 Status: Ordered [...] Team Personnel Name: Luzmaria Calderón NP Position: [facility] PCO Associate Professional Member Role: Primary Care Nurse Address: Address: [address] [place] [address]- Name: Zurdo Gould RN Position: [facility] RN Member Role: Primary Care Nurse Name: Luzmaria Skinner RN Position: [facility] RN Member Role: Primary Care Nurse Name: Evelyn Dey RN Position: [facility] RN Member Role: Primary Care Nurse Name: Chelsy Kc RN Position: [facility] AMB Nurse Member Role: Primary Care Nurse Name: Radha Galvez RN Position: [facility] Pedro RN Member Role: Primary Care Nurse Name: Brea Barajas NP Position: [facility] Associate Professional Member Role: Primary Care Nurse Address: Address: [address] [place] [address]- Name: Elissa Lopez RN Position: [facility] RN Member Role: Primary Care Nurse Name: Ann Oliver NP Position: Reference Physician Member Role: Primary Care Nurse Address: Address: [address] [place] [address] [address] [place] [address]- [place] Name: Gloria Peralta RN Position: [facility] RN Member Role: Primary Care Nurse Name: Laura Pratt RN Position: [facility] Onco RN Member Role: Primary Care Nurse Name: Shaniqua Tripp RN Position: [facility] AMB Nurse Member Role: Primary Care Nurse Name: Becky Amaro RN Position: [facility] RN Member Role: Primary Care Nurse Name: Franci Walker RN Position: [facility] RN Member Role: Primary Care Nurse Name: Ariana Wheeler RN Position: [facility] RN Member Role: Primary Care Nurse Name: Regina Richardson Position: [facility] RN Member Role: Primary Care Nurse Name: Smitha Ryan NP Position: [facility] Associate Professional Member Role: Primary Care Nurse Address: Address: [address] [place] [address] [place] [address]- [place] Name: Regina Bo RN Position: [facility] AMB Nurse Member Role: Primary Care Nurse Name: Opal Ramos RN Position: [facility] RN Member Role: Primary Care Nurse Name: Cyndi Chapman NP Position: [facility] Outreach Member Role: PCP Address: Address: [address] [place] [address]- [place] Name: Arianna Blair RN Position: [facility] ED RN W/OE and Tasks Member Role: Primary Care Nurse Name: Sarkis Dawn RN Position: [facility] RN Member Role: Primary Care Nurse Name: Terrie Valles RN Position: [facility] RN Member Role: Primary Care Nurse Name: Antonio Sheriff III, RN Position: [facility] RN Member Role: Primary Care Nurse Name: Blanca Quiroga RN Position: [facility] RN Member Role: Primary Care Nurse Name: Sally Loya RN Position: [facility] RN Member Role: Primary Care Nurse Name: Quirino Mejia RN Position: [facility] RN Member Role: Primary Care Nurse Name: Massiel Ham RN Position: [facility] AMB Nurse Member Role: Primary Care Nurse Name: Daria Dalton RN Position: [facility] RN Member Role: Primary Care Nurse Name: Luzmaria Gan RN Position: [facility] Financial Analysis Consultant Member Role: Primary Care Nurse Name: Quirino Duran RN Position: [facility] RN Member Role: Primary Care Nurse Name: Evelyn Monroe RN Position: [facility] OB RN Member Role: Primary Care Nurse Name: Yessica Morillo RN Position: [facility] RN Member Role: Primary Care Nurse Care Team Related Persons Name: JERAMIE BARGER Address: [address] [place] [address] Name: RIKY PEREIRA Address: home [address] [address] Name: EILEEN GOODMAN Address: home [address] [place] [address]
--- OUTSIDE RECORDS SUMMARY | 2024-05-15 00:39 | XMS_ITS | Continuity of Care Document ---
Author Organization [facility] Address [address] [place] [address] [address] [place] [address]- Care Team Providers Care Freight Checker Name Role Phone Adela CYR, Cyndi Annshank Primary Care Physicia n Unavailable Encounter [facility] [place]s): 05/18/23 - 06/17/23 [facility] [address] [place] [id number] Attending Physician: Ambrose Reyes MD Admitting Physician: [...] 6 Refills, Maintenance, 04/15/23 10:00:00 EDT,Solution, [id number], Partial fill upon pat... Start Date: 04/15/23 [...] each, 5 Refills, Maintenance, 11/06/22 13:50:00 EST, [id number], 30, INHALE 1 PUFF INTO THE LUNGS [...] 10:40:22 EDT, Aerosol, Route to Pharmacy Electronically, NCPDP_ID-[id number], [facility] Start Date: 12/31/19 Stop Date: 04/29/20 Status: Ordered Spiriva HandiHaler 18 mcg inhalation capsule 1 capsule = 18 mcg, Inhalation, Daily, j45.40, # 30 capsule, 6 Refills, Maintenance, 01/29/21 15:26:00 EDT, [facility][id number], 163, cm, 12/18/20 9:27:00 EDT, Height, 81.8, [...] 11:07:00 EDT, Aerosol, Route to Pharmacy Electronically, [id number]... Start Date: 01/07/23 Stop Date: 01/02/24 Status: [...] 01/20/19 11:33:04 EDT, Route to Pharmacy Electronically, NCPDP_ID-[id number], [facility] Start Date: 01/20/19 Status: Ordered [...] oligomenorrhea and US evidence of polycystic ovaries Vital Signs Most recent to oldest [Reference Range]: 1 Height 163 cm (05/18/23 4:41 PM) Weight 69.6 kg (05/18/23 4:41 PM) Social History Social History Type Response Smoking Status Never smoker; Tobacc o user in household: Yes entered on: 03/27/16 Sex Patient Care team information Care Team Personnel Name: Luzmaria Calderón NP Position: [facility] PCO Associate Professional Member Role: Primary Care Nurse Address: Address: [address] [place] [address]- Name: Zurdo Gould RN Position: [facility] RN Member Role: Primary Care Nurse Name: Evelyn Dey RN Position: [facility] RN Member Role: Primary Care Nurse Name: Chelsy Kc RN Position: [facility] ADRIANA Nurse Member Role: Primary Care Nurse Name: Radha Galvez RN Position: [facility] Pedro RN Member Role: Primary Care Nurse Name: Brea Barajas NP Position: [facility] Associate Professional Member Role: Primary Care Nurse Address: Address: [address] [place] [address]- Name: Elissa Lopez RN Position: [facility] RN Member Role: Primary Care Nurse Name: Ann Oliver NP Position: Reference Physician Member Role: Primary Care Nurse Address: Address: [address] [place] [address] [address] [place] [address]- [place] Name: Gloria Peralta RN Position: [facility] RN Member Role: Primary Care Nurse Name: Shaniqua Tripp RN Position: [facility] AMB Nurse Member Role: Primary Care Nurse Name: Becky Amaro RN Position: [facility] RN Member Role: Primary Care Nurse Name: Franci Walker RN Position: [facility] RN Member Role: Primary Care Nurse Name: Ariana Wheeler RN Position: [facility] RN Member Role: Primary Care Nurse Name: Regina Richardson Position: [facility] RN Member Role: Primary Care Nurse Name: Smitha Ryan NP Position: [facility] Associate Professional Member Role: Primary Care Nurse Address: Address: [address] [place] [address] [place] [address]- Name: Regina Bo RN Position: [facility] AMB Nurse Member Role: Primary Care Nurse Name: Opal Ramos RN Position: [facility] RN Member Role: Primary Care Nurse Name: Cyndi Chapman NP Position: [facility] Outreach Member Role: PCP Address: Address: [address] [place] [address]- Name: Arianna Blair RN Position: [facility] ED RN W/OE and Tasks Member Role: Primary Care Nurse Name: Sarkis Dawn RN Position: [facility] RN Member Role: Primary Care Nurse Name: Terrie Valles RN Position: [facility] RN Member Role: Primary Care Nurse Name: Antonio Sheriff III, RN Position: [facility] RN Member Role: Primary Care Nurse Name: Blanca Quiroga RN Position: [facility] RN Member Role: Primary Care Nurse Name: Luzmaria Youngblood RN Position: [facility] RN Member Role: Primary Care Nurse Name: Sally Loya RN Position: [facility] RN Member Role: Primary Care Nurse Name: Quirino Mejia RN Position: [facility] RN Member Role: Primary Care Nurse Name: Msasiel Ham RN Position: [facility] AMB Nurse Member Role: Primary Care Nurse Name: Daria Dalton RN Position: [facility] RN Member Role: Primary Care Nurse Name: Luzmaria Gan RN Position: [facility] Hospital Lineman Service Or Work Dispatcher Member Role: Primary Care Nurse Name: Quirino Duran RN Position: [facility] RN Member Role: Primary Care Nurse Name: Evelyn Monroe RN Position: [facility] OB RN Member Role: Primary Care Nurse Name: Laura Chavira RN Position: [facility] Onco RN Member Role: Primary Care Nurse Name: Yessica Morillo RN Position: [facility] RN Member Role: Primary Care Nurse Care Team Related Persons Name: JERAMIE BARGER Address: [address] [place] [address] Name: RIKY PEREIRA Address: home [address] [address] Name: EILEEN GOODMAN Address: [address] [place] [address]
--- OUTSIDE RECORDS SUMMARY | 2024-05-15 00:39 | XMS_ITS | Continuity of Care Document ---
Author Organization [facility] ed[facility] Address [address] [place] [address]- Care Team Providers Care Senior Quality Analyst Name Role Phone Adela CYR, Cyndi Aguila Primary Care Physicia n Encounter [facility] Date(s): 05/14/23 - 09/11/23 [facility] [address] [place] [address] Attending Physician: Ambrose Reyes MD Admitting Physician: Ambrose Reyes MD Referring Physician: Cyndi Chapman NP Allergies, Adverse Reactions, Alerts Substance Reaction Severity [...] 6 Refills, Maintenance, 04/15/23 10:00:00 EDT,Solution, [id number], Partial fill upon pat... Start Date: 04/15/23 [...] each, 5 Refills, Maintenance, 07/09/23 8:16:00 EDT, [email or web address], 30, INHALE 1 PUFF INTO THE LUNGS [...] 10:40:22 EDT, Aerosol, Route to Pharmacy Electronically, NCPDP_[id number], [facility] Start Date: 12/31/19 Stop Date: 04/29/20 Status: Ordered Spiriva HandiHaler 18 mcg inhalation capsule 1 capsule = 18 mcg, Inhalation, Daily, j45.40, # 30 capsule, 6 Refills, Maintenance, 01/29/21 15:26:00 EDT, [facility] #[id number], 163, cm, 12/18/20 9:27:00 EDT, Height, 81.8, [...] 11:07:00 EDT, Aerosol, Route to Pharmacy Electronically, [id number]... Start Date: 01/07/23 Stop Date: 01/02/24 Status: [...] 01/20/19 11:33:04 EDT, Route to Pharmacy Electronically, NCPDP_[id number], [facility] Start Date: 01/20/19 Status: Ordered Tylenol Extra [...] Team Personnel Name: Luzmaria Calderón NP Position: [facility] PCO Associate Professional Member Role: Primary Care Nurse Address: Address: [address] [place] [address]- Name: Zurdo Gould RN Position: [facility] RN Member Role: Primary Care Nurse Name: Luzmaria Skinner RN Position: [facility] RN Member Role: Primary Care Nurse Name: Evelyn Dey RN Position: [facility] RN Member Role: Primary Care Nurse Name: Chelsy Kc RN Position: [facility] ADRIANA Nurse Member Role: Primary Care Nurse Name: Radha Galvez RN Position: [facility] Pedro RN Member Role: Primary Care Nurse Name: Brea Barajas NP Position: [facility] Associate Professional Member Role: Primary Care Nurse Address: Address: [address] [place] [address]- Name: Elissa Lopez RN Position: [facility] RN Member Role: Primary Care Nurse Name: Ann Oliver NP Position: Reference Physician Member Role: Primary Care Nurse Address: Address: [address] [place] [address] [address] [place] [address]- [place] Name: Gloria Peralta RN Position: [facility] RN Member Role: Primary Care Nurse Name: Laura Pratt RN Position: [facility] Onco RN Member Role: Primary Care Nurse Name: Shaniqua Tripp RN Position: [facility] AMB Nurse Member Role: Primary Care Nurse Name: Becky Amaro RN Position: [facility] RN Member Role: Primary Care Nurse Name: Franci Walker RN Position: [facility] RN Member Role: Primary Care Nurse Name: Ariana Wheeler RN Position: [facility] RN Member Role: Primary Care Nurse Name: Regina Richardson Position: [facility] RN Member Role: Primary Care Nurse Name: Smitha Ryan NP Position: [facility] Associate Professional Member Role: Primary Care Nurse Address: Address: [address] [place] [address] [place] [address]- [place] Name: Regina Bo RN Position: [facility] AMB Nurse Member Role: Primary Care Nurse Name: Opal Ramos RN Position: [facility] ED RN W/OE and Tasks Member Role: Primary Care Nurse Name: Cyndi Chapman NP Position: Reference Physician Member Role: PCP Address: Address: [address] [place] [address]- [place] Name: Arianna Blair RN Position: [facility] ED RN W/OE and Tasks Member Role: Primary Care Nurse Name: Sarkis Dawn RN Position: [facility] RN Member Role: Primary Care Nurse Name: Terrie Valles RN Position: [facility] RN Member Role: Primary Care Nurse Name: Antonio Sheriff III, RN Position: [facility] RN Member Role: Primary Care Nurse Name: Blanca Quiroga RN Position: [facility] RN Member Role: Primary Care Nurse Name: Quirino Mejia RN Position: [facility] RN Member Role: Primary Care Nurse Name: Massiel Ham RN Position: [facility] AMB Nurse Member Role: Primary Care Nurse Name: Daria Dalton RN Position: [facility] RN Member Role: Primary Care Nurse Name: Luzmaria Gan RN Position: [facility] Hospital Textile Technologist Member Role: Primary Care Nurse Name: Jim Cedeño RN Position: [facility] ED RN W/OE and Tasks Member Role: Primary Care Nurse Name: Quirino Duran RN Position: [facility] RN Member Role: Primary Care Nurse Name: Evelyn Monroe RN Position: [facility] OB RN Member Role: Primary Care Nurse Name: Yessica Morillo RN Position: [facility] RN Member Role: Primary Care Nurse Care Team Related Persons Name: JERAMIE BARGER Address: [address] [place] [address] Name: RIKY PEREIRA Address: [address] [address] Name: EILEEN GOODMAN Address: [address] [place] [address]
--- OUTSIDE RECORDS SUMMARY | 2024-05-15 00:40 | XMS_ITS | Continuity of Care Document ---
Author Organization [facility] ed[facility] Address [address] [place] [address] [address] [place] [address]- Care Team Providers Care Energy Analyst Name Role Phone Adela CYR, Cyndi Aguila Primary Care Physicia n Unavailable Encounter [facility] Date(s): 05/13/23 - 06/12/23 [facility] [address] [place] [address] [address] [place], [place] [address] Allergies, Adverse Reactions, Alerts Substance Reaction Severity [...] 6 Refills, Maintenance, 04/15/23 10:00:00 EDT,Solution, [id number], Partial fill upon pat... Start Date: 04/15/23 [...] each, 5 Refills, Maintenance, 11/06/22 13:50:00 EST, [facility], 30, INHALE 1 PUFF INTO THE LUNGS [...] 10:40:22 EDT, Aerosol, Route to Pharmacy Electronically, NCPDP_[id number], [facility] Start Date: 12/31/19 Stop Date: 04/29/20 Status: Ordered Spiriva HandiHaler 18 mcg inhalation capsule 1 capsule = 18 mcg, Inhalation, Daily, j45.40, # 30 capsule, 6 Refills, Maintenance, 01/29/21 15:26:00 EDT, [facility] #[id number], 163, cm, 12/18/20 9:27:00 EDT, Height, 81.8, [...] 11:07:00 EDT, Aerosol, Route to Pharmacy Electronically, [id number]... Start Date: 01/07/23 Stop Date: 01/02/24 Status: [...] 01/20/19 11:33:04 EDT, Route to Pharmacy Electronically, NCPDP_[id number], [facility] Start Date: 01/20/19 Status: Ordered Tylenol Extra [...] Team Personnel Name: Luzmaria Calderón NP Position: [facility] PCO Associate Professional Member Role: Primary Care Nurse Address: Address: [address] [place] [address]- [place] Name: Zurdo Gould RN Position: S RN Member Role: Primary Care Nurse Name: Evelyn Dey RN Position: S RN Member Role: Primary Care Nurse Name: Chelsy Kc RN Position: [facility] AMB Nurse Member Role: Primary Care Nurse Name: Radha Galvez RN Position: [facility] Pedro RN Member Role: Primary Care Nurse Name: Brea Barajas NP Position: [facility] Associate Professional Member Role: Primary Care Nurse Address: Address: [address] [place] [address]- [place] Name: Elissa Lopez RN Position: [facility] RN Member Role: Primary Care Nurse Name: Ann Oliver NP Position: Reference Physician Member Role: Primary Care Nurse Address: Address: [address] [place] [address] [address] [place] [address]- [place] Name: Gloria Peralta RN Position: S RN Member Role: Primary Care Nurse Name: Shaniqua Tripp RN Position: [facility] AMB Nurse Member Role: Primary Care Nurse Name: Becky Amaro RN Position: [facility] RN Member Role: Primary Care Nurse Name: Franci Walker RN Position: [facility] RN Member Role: Primary Care Nurse Name: Ariana Wheeler RN Position: [facility] RN Member Role: Primary Care Nurse Name: Regina Richardson Position: [facility] RN Member Role: Primary Care Nurse Name: Smitha Ryan NP Position: [facility] Associate Professional Member Role: Primary Care Nurse Address: Address: [address] [facility] [place] [address]- Name: Regina Bo RN Position: [facility] AMB Nurse Member Role: Primary Care Nurse Name: Opal Ramos RN Position: [facility] RN Member Role: Primary Care Nurse Name: Cyndi Chapman NP Position: [facility] Outreach Member Role: PCP Address: Address: [address] [place] [address]- Name: Arianna Blair RN Position: [facility] ED RN W/OE and Tasks Member Role: Primary Care Nurse Name: Sarkis Dawn RN Position: [facility] RN Member Role: Primary Care Nurse Name: Terrie Valles RN Position: [facility] RN Member Role: Primary Care Nurse Name: Antonio Sheriff III, RN Position: [facility] RN Member Role: Primary Care Nurse Name: Blanca Quiroga RN Position: [facility] RN Member Role: Primary Care Nurse Name: Luzmaria Youngblood RN Position: [facility] RN Member Role: Primary Care Nurse Name: Sally Loya RN Position: [facility] RN Member Role: Primary Care Nurse Name: Quirino Mejia RN Position: [facility] RN Member Role: Primary Care Nurse Name: Massiel Ham RN Position: [facility] AMB Nurse Member Role: Primary Care Nurse Name: Daria Dalton RN Position: [facility] RN Member Role: Primary Care Nurse Name: Luzmaria Gan RN Position: [facility] Hospital Public Transit Trolley Driver Member Role: Primary Care Nurse Name: Quirino Duran RN Position: [facility] RN Member Role: Primary Care Nurse Name: Evelyn Monroe RN Position: [facility] OB RN Member Role: Primary Care Nurse Name: Laura Chavira RN Position: [facility] Onco RN Member Role: Primary Care Nurse Name: Yessica Morillo RN Position: [facility] RN Member Role: Primary Care Nurse Care Team Related Persons Name: JERAMIE BARGER Address: [address] [place] [address] Name: RIKY PEREIRA Address: [address] [address] Name: EILEEN GOODMAN Address: home [address] [place] [address]
--- OUTSIDE RECORDS SUMMARY | 2024-05-15 00:40 | XMS_ITS | Continuity of Care Document ---
Author Organization [facility] Address [address] [place] [id number]- Care Team Providers Care Dough Cutter Name Role Phone Nakul Gallardo Primary Care Physician [place] [facility] [place]23 - 03/05/23 [facility] [address] [place] [id number] Allergies, Adverse Reactions, Alerts Substance Reaction Severity [...] Given Human Papillomavirus Vaccine 1 09/03/07 Given Not Given Vaccine Date Status Refusal Reason influenza virus vaccine, inactivated 08/25/18 Not Given Patient Refuses influenza virus vaccine, inactivated 08/23/14 Not Given Patient Refuses influenza virus vaccine, inactivated 08/06/14 Not Given Patient Refuses 1Admin Note: Gardasil #1 Medications Albuterol 0.083% inhalation rebekah 2.5 mg, 3, mL, Neb, 4 times a day, PRN, Refills 0, Maintenance, Wheezing/Shortness of Breath, 01/12/19 9:32:53 EDT, Inhalation Solution Start Date: 01/12/19 Status: Ordered albuterol-ipratropium 3 mg-0.5 mg/3 ml [...] each, 5 Refills, Maintenance, 11/06/22 13:50:00 EST, [id number], 30, INHALE 1 PUFF INTO THE LUNGS ONCE DAILY, 163, cm, 03/03/22 14:14:00 EDT, Height Start Date: 11/06/22 Status: Ordered cymbalta cymbalta, 0 Refills, Maintenance, 03/03/22 14:17:00 EDT Start Date: 03/03/22 Status: Ordered EPINEPHrine 0.1 mg injectable kit Intramuscular, Once, 0 Refills, Maintenance, 10/27/18 2:57:50 EST Start Date: 10/27/18 Status: Ordered Famotidine 0 Refills, Maintenance, 03/03/22 14:17:00 EDT, Partial fill upon patient request if the prescription is for a schedule II opioid drug. Start Date: 03/03/22 Status: Ordered montelukast 10 mg oral tablet 10 mg, 1, tablet, By Mouth, Daily in PM, # 30 tablet, Refills 0, Maintenance, 04/14/18 9:13:17 EDT Start Date: 04/14/18 Status: Ordered ProAir HFA 90 mcg/inh inhalation aerosol with adapter 2, puffs, Inhalation, Every 4 hours, PRN, # 1 each, Refills 3, Tot. Refills 3, Maintenance, 12/31/19 10:40:22 EDT, Aerosol, Route to Pharmacy Electronically, NCPDP_[id number], [facility] Start Date: 12/31/19 Stop Date: 04/29/20 Status: Ordered protonix protonix, 0 Refills, Maintenance, 03/03/22 14:18:00 EDT Start Date: 03/03/22 Status: Ordered provera provera, 0 Refills, Maintenance, 03/03/22 14:17:00 EDT Start Date: 03/03/22 Status: Ordered Spiriva HandiHaler 18 mcg inhalation capsule 1 capsule = 18 mcg, Inhalation, Daily, j45.40, # 30 capsule, 6 Refills, Maintenance, 01/29/21 15:26:00 EDT, [id number], 163, cm, 12/18/20 9:27:00 EDT, Height, 81.8, [...] 11:07:00 EDT, Aerosol, Route to Pharmacy Electronically, [id number]... Start Date: 01/07/23 Stop Date: 01/02/24 Status: Ordered topamax topamax, 0 Refills, Maintenance, 03/03/22 14:16:00 EDT Start Date: 03/03/22 Status: Ordered traZODone 50 mg oral tablet 50 mg, 1, tablet, By Mouth, Daily at bedtime, # 30 tablet, Refills 0, Tot. Refills 0, Maintenance, 01/20/19 11:33:04 EDT, Route to Pharmacy Electronically, NCPDP_[id number], [facility] Start Date: 01/20/19 Status: Ordered Problem List Condition Confirmation Course [...] Care team information Care Team Personnel Name: Nakul Gallardo Position: [facility] Outreach Member Role: PCP Address: Address: [address] [place] [address]- [place] Name: Luzmaria Calderón NP Position: [facility] PCO Associate Professional Member Role: Primary Care Nurse Address: Address: [address] [place] [address] [place] [address]- [place] Name: Zurdo Gould RN Position: [facility] RN Member Role: Primary Care Nurse Name: Evelyn Dey RN Position: [facility] RN Member Role: Primary Care Nurse Name: Chelsy Kc RN Position: [facility] AMB Nurse Member Role: Primary Care Nurse Name: Radha Galvez RN Position: [facility] Rad RN Member Role: Primary Care Nurse Name: Brea Barajas NP Position: [facility] Associate Professional Member Role: Primary Care Nurse Address: Address: [address] [place] [address]- [place] Name: Elissa Lopez RN Position: [facility] RN Member Role: Primary Care Nurse Name: Ann Oliver NP Position: Reference Physician Member Role: Primary Care Nurse Address: Address: [address] [place] [address] [address] [place] [address]- [place] Name: Gloria Peralta RN Position: [facility] [...] Role: Primary Care Nurse Address: Address: [address] [facility] [place] [address]- [place] Name: Regina Bo RN Position: [facility] RN Member Role: Primary Care Nurse Name: Opal Ramos RN Position: [facility] ED RN W/OE and Tasks Member Role: Primary Care Nurse Name: Johnnie RN, Arianna Moncada Position: [facility] ED RN W/OE and Tasks Member Role: Primary Care Nurse Name: Nereyda RN, Sarkis Gee Position: [facility] RN [...] Position: [facility] Hospital Upper Inspector Member Role: Primary Care Nurse Name: Nuris Williamson RN Position: [facility] ED RN W/OE and Tasks Member Role: Primary Care Nurse Name: Quirino Duran RN Position: [facility] ED RN W/OE and Tasks Member Role: Primary Care Nurse Name: Evelyn [...] Persons Name: JERAMIE BARGER Address: home [address] [place] [address] Name: RANDALL RIKY Address: home [address] [address] Name: EILEEN GOODMAN Address: home [address] [place] [address]
== END 2024-05-14 17:10 | disposition home or self-care (01) ==
PROVIDERS: Emergency Provider Emergency Medicine
DX: T63.441A Toxic effect of venom of bees, accidental (unintentional), initial encounter (principal); Y92.9 Unspecified place or not applicable
CPT/HCPCS: 96374; 96375; 96376; 99283; 99284; J1200; J2919